=== PATIENT | male | born 1970 ===

== ENCOUNTER → 2016-08-23 | Outpatient (REF) | payer OTHER ==
[2016-08-23 16:40] LABS: BASOPHILS % (AUTO) 0 % (0-2); EOSINOPHILS # (AUTO) 0.4 10^3uL; EOSINOPHILS % (AUTO) 5 % (0-4); LYMPHOCYTES # (AUTO) 2.2 X10^3; MEAN CORPUSCULAR VOLUME 80 FL (80-100); MEAN PLATELET VOLUME 12.2 FL (6.0-9.5); MONOCYTES # (AUTO) 0.5 X10^3; MONOCYTES % (AUTO) 8 % (3-11); NEUTROPHILS # (AUTO) 3.8 X10^3; NEUTROPHILS % (AUTO) 55 % (51-67); PLATELET COUNT 229 10^3uL (150-450); WHITE BLOOD COUNT 6.86 10^3uL (4.0-11.0)
[2016-08-23 16:57] LABS: ALBUMIN 4.3 g/dL (3.4-5.0); ANION GAP 15.8 MEQ/L (3-15); CALCULATED IONIZED CALCIUM 4.3 mg/dL (3.8-4.6); TOTAL PROTEIN 6.8 g/dL (6.4-8.5)
== END ==
LOC: NM 15:27
PROVIDERS: ATTEND Family Medicine
DX: I25.10 Atherosclerotic heart disease of native coronary artery without angina pectoris (principal); E11.9 Type 2 diabetes mellitus without complications; R53.83 Other fatigue; I10 Essential (primary) hypertension; J32.8 Other chronic sinusitis
CPT/HCPCS: 80053; 83036; 84403; 84443; 84550; 85025